=== PATIENT | male | born 1950 | race Caucasian/White ===

== ENCOUNTER 2020-02-19 12:19 | Outpatient (CLI) | payer OTHER, SELFPAY ==
--- NOTE | 2020-02-19 12:22 | ECG_ITS ---
Measurements Intervals [place] Rate: 69 P: 46 RI: 159 QRS: -5 QRSD: 81 T: 54 QT: 362 QTc: 389 Interpretive Statements SINUS RHYTHM EARLY PRECORDIAL R/S TRANSITION BASELINE ARTIFACT- I, III, AVR, AVL, AVF, V1-V6 BORDERLINE ECG Electronically Signed On 02-19-2020 13:33:47 CDT by Agustin Farmer D.O.
[2020-02-19 13:11] LABS: Anion Gap 5 mmol/L (8-16); Blood Urea Nitrogen 16 mg/dL (9-20); Calcium 9.7 mg/dL (8.4-10.2); Carbon Dioxide 34 mmol/L (22-30); Chloride 100 mmol/L (98-107); Estimated Glomerular Filt Rate > 60; Glucose 134 mg/dL (75-110); Potassium 4.9 mmol/L (3.4-5.0); Sodium 139 mmol/L (137-145)
== END 2020-02-19 12:20 | disposition home or self-care (01) ==
PROVIDERS: Anesthesiology; PCP Family Medicine; Visit Provider Surgery
DX: E11.9 Type 2 diabetes mellitus without complications (principal); Z01.818 Encounter for other preprocedural examination; R94.31 Abnormal electrocardiogram [ECG] [EKG]
CPT/HCPCS: 36415; 80048; 93005

== ENCOUNTER 2020-02-24 00:55 | Outpatient (CLI) | payer OTHER, SELFPAY ==
[2020-02-24 16:30] LABS: SARS-CoV-2 RNA PCR Negative
== END 2020-02-24 00:56 | disposition home or self-care (01) ==
LOC: ANHCOVIDDT 00:55
PROVIDERS: PCP Family Medicine; Visit Provider Surgery
DX: Z01.812 Encounter for preprocedural laboratory examination (principal); Z20.828 Contact with and (suspected) exposure to other viral communicable diseases
CPT/HCPCS: 87635; C9803; U0003

== ENCOUNTER 2020-02-26 00:17 | Day surgery (SDC) | payer OTHER, SELFPAY ==
[2020-02-17 14:55] VITALS: BMI 31.8
[2020-02-26 10:10] VITALS: BP 156/97; PULSE 66; RESP 20; TEMP 36.4; O2SAT 98
[2020-02-26] MEDS: LACTATED RINGERS 1,000 ML 30 ML IV CONT (10:30)
[2020-02-26 10:43] LABS: Glucose Point of Care 146 (65-105)
--- NOTE | 2020-02-26 11:12 | WPDANESEPPF ---
Anes - Initial Pre Proc Eval Procedure: Operation Date: 02/26/20 12:00 Proposed Procedures p Excision of Subcutaneous Mass Right Posterior Neck - Ben Young MD Date/Time: 02/26/20 11:12 Surgeon: Ben Young MD Pre Op Diagnosis: Subcutaneous Mass Right Neck Patient Data Age: 69 Gender: M Height: 5 ft 11 in Weight: 105.8 kg Last Vital Signs Temp 97.6 F 02/26/20 10:10 Pulse 66 02/26/20 10:10 Resp 20 02/26/20 10:10 BP 156/97 H 02/26/20 10:10 Pulse Ox 98 02/26/20 10:10 Allergies Allergy/AdvReac Type Severity Reaction Status Date / Time mesalamine Allergy Unknown Unknown Verified 02/17/20 14:43 aspirin AdvReac Mild ITCHING Verified 02/26/20 10:21 AND LITTLE BUMPS ON TOP OF HEAD Home Medications Medication Instructions Recorded Confirmed Type atorvastatin 10 mg tablet 10 mg PO DAILY 02/12/20 02/26/20 History metformin 500 mg tablet 500 mg PO BID 02/12/20 02/26/20 History Laboratory Tests 02/26/20 10:37 POC Capillary Glucose 146 mg/dl H mg/dl (65-105) Patient hx anesthesia problems: none Family hx anesthesia problems: none PMFSH Past Medical History Medical History Diabetes mellitus High cholesterol Hypertension Surgical History Surgical History History of arthroplasty of left knee History of laparoscopic appendectomy Family History Family History Mother , age 76 Family history of aortic aneurysm Carcinoma of colon Father , age 82 Acute myocardial infarction Hypertension Lung cancer Other Family history of cardiovascular disease Family history of malignant neoplasm Social History Social History Smoking status: Never smoker Alcohol intake: current Living arrangements: with family Spiritual care concerns: No Anes - Eval Final PreProcedure Day of Procedure 02/26/20 11:12 Patient weight: obese Heart: regular rate and rhythm Lungs: clear to auscultation Airway: Mallampati scale class II Neurological: alert and oriented Last oral intake: >/= 8 hours ASA classification: III Emergent: no Anesthetic plan: proceed Anesthesia type and monitoring: general GIVS and standard monitoring Informed Consent: The patient's anesthetic plan and its attendant risks and benefits were discussed with the patient/family/POA. Questions were solicited and answers provided to the satisfaction of the patient/family/POA.
--- NOTE | 2020-02-26 12:00 | WPDHPUPDATE1 ---
History and Physical Update Update Date/Time: 02/26/20 12:00 History and Physical has been reviewed, including an updated exam of the patient. There are NO changes in the patient's condition. Risks, benefits, and alternatives have been discussed and questions answered. Patient agrees to proceed with procedure.
[2020-02-26] MEDS: ceFAZolin 2 GM/D5W 50 ML 2 GM/50 ML BAG IVPB (12:42)
[2020-02-26] MEDS: LIDO 2%/EPINEPHRINE 1:100,000 20 ML VIAL INFILTRATE (13:17)
[2020-02-26 13:44] VITALS: BP 130/71; PULSE 69; RESP 12; O2SAT 95
--- NOTE | 2020-02-26 13:56 | P.OP_ITS ---
Procedure Note - Detailed Date of procedure: 02/26/20 Pre-op diagnosis: Subcutaneous Mass Right Neck Post-op diagnosis: same Procedure performed: Excision of skin lesion Description of procedure: The patient was placed in the left lateral decubitus position. After a surgical time out confirming patient and procedure the patient was prepped and draped in the usual sterile fashion. I then outlined a transverse incision directly over the 6 cm x 4 cm palpable subcutaneous mass on the left posterior sees me right posterior neck.Local anesthetic was administered subcutaneously An in the skin and also from the midline down to the edges of the lesion.. The lesion measured 6 x 4 cm. A direct incision was made over the lesion and I then raised flaps inferiorly and superiorly using retractors to carefully completely excise the egg-shaped subcutaneous lesion. In doing so I was taking a thin margin circumferentially. I dissected down to the deep subcutaneous tissues an on the deep side did run into a little bit of fascia overlying his cervical muscles. No real muscle tissue was excised. I then completely excised the lesion. after excision measured 6 x 4 x 2 cm in size and appeared to be a lipoma. Bleeding was controlled with electrocautery. The wound was closed in two layers. An un-dyed 3-0 vicryl deep dermal and then a 4-0 undyed Monocryl running subcuticular closure was completed. Surgical glue applied as dressing. Patient was taken to phase 2 recovery room in good condition Estimated blood loss approximately 5 cc Patient tolerated this well. Implants: none Anesthesia: GLMA and local Surgeon: Ben Young MD Zigzag Appliquer: ROSA MARIA Edouard, OR first line production supervisor Estimated blood loss (mL): 5 Drains: No Packing: No Pathology: yes ( oval subcutaneous mass) Complications: No immediate complications Condition: stable Disposition: same day Findings: What appeared to be a fatty subcutaneous mass.
[2020-02-26 13:59] LABS: Glucose Point of Care 145 (65-105)
[2020-02-26 14:15] VITALS: BP 130/67; PULSE 69; RESP 20
[2020-02-26 14:45] VITALS: BP 150/80; PULSE 56; RESP 20
== END 2020-02-26 14:50 | disposition home or self-care (01) ==
PROVIDERS: PCP Family Medicine; Visit Provider Surgery
PROC: (CPT 21552; principal; 2020-02-26 12:00)
DX: D17.0 Benign lipomatous neoplasm of skin and subcutaneous tissue of head, face and neck (principal); E11.9 Type 2 diabetes mellitus without complications; E78.00 Pure hypercholesterolemia, unspecified; I10 Essential (primary) hypertension; Z79.84 Long term (current) use of oral hypoglycemic drugs; E66.9 Obesity, unspecified; Z68.32 Body mass index [BMI] 32.0-32.9, adult
CPT/HCPCS: 21552; 88304; J0690; J2250; J2704; J3010; J7120

== ENCOUNTER → 2020-05-21 10:45 | Outpatient (CLI) | payer OTHER, SELFPAY ==
--- NOTE | ~2020-05-21 | MR_ITS ---
EXAMINATION: MR cervical spine wo/w con DATE: 05/21/2020 11:53 INDICATION: Cervicalgia TECHNIQUE: Magnetic resonance imaging (MRI) of the cervical spine was performed without and with 20 m L Multihance intravenous contrast. Sequences included sagittal T2-weighted FSE, sagittal T2-weighted FS FSE, sagittal T1-weighted FSE, axial MERGE and axial T2-weighted FSE. COMPARISON: Cervical spine radiographs dated 02/13/2017 FINDINGS: Mild reversal of the normal cervical lordosis. 2 mm retrolisthesis C6 on C7. Vertebral body heights are normal. Mild marrow edema and enhancement along the margins of a small Schmorl's node at the supe rior endplate of C7. Bone marrow signal intensity is otherwise normal. Moderate disc height loss at C 5-C6 and mild disc height loss at C3-C4, C4-C5 and C6-C7. Cord signal intensity is normal. There is a n approximately 4.3 x 1.5 x 2.4 cm enhancing right paraspinal spiculated mass centered in the subcuta neous fat overlying the right trapezius muscle at the level of the tip of the C4 spinous process. Lat eral to the splenic masses are a few small enhancing subcutaneous nodules measuring up to 4 mm sugges ting associated lymphadenopathy. The following disc levels are specifically discussed: C2-C3: The disc does not extend beyond the endplate margin. There is mild bilateral uncovertebral abida nt osteoarthritis. There is mild left and severe right facet joint osteoarthritis. There is moderate right neural foraminal stenosis. There is no central canal stenosis. C3-C4: The disc does not extend beyond the endplate margin. There is mild left and moderate right unc overtebral joint osteoarthritis. There is mild right and severe left facet joint osteoarthritis. Ther e is moderate bilateral neural foraminal stenosis. There is mild central canal stenosis. C4-C5: Disc is bulging. There is moderate right and severe left uncovertebral joint osteoarthritis. T here is moderate bilateral facet joint osteoarthritis. There is moderate bilateral, right greater breanna n left, neural foraminal stenosis. There is mild central canal stenosis with mild indentation of the ventral surface of the cord. C5-C6: Disc is bulging. There is mild right and severe left uncovertebral joint osteoarthritis. There is also moderate bilateral facet joint osteoarthritis. There is moderate left and mild to moderate r ight neural foraminal stenosis. There is mild central canal stenosis with flattening of the ventral s urface of the cord.. C6-C7: Disc is bulging. There is moderate right and severe left uncovertebral joint osteoarthritis. T here is mild right and moderate left facet joint osteoarthritis. There is moderate left and mild to m oderate right neural foraminal stenosis. There is mild central canal stenosis. 4.3 x 1.5 x 2.4 similar enhancing subcutaneous mass C7-T1: Disc is minimally bulging. There is no uncovertebral joint osteoarthritis. There is moderate l eft and severe right facet joint osteoarthritis. There is mild left and mild to moderate right neural foraminal stenosis. There is no central canal stenosis. IMPRESSION: 1. 4.3 x 1.5 x 2.4 cm enhancing spiculated right paraspinal subcutaneous mass at the level of the C4 spinous process. There are a few subcentimeter enhancing nodules in the adjacent subcutaneous fat. Th felicita findings are concerning for malignancy with local metastatic disease and would recommend ultrasou nd-guided percutaneous core needle biopsy. 2. Moderate cervical spondylosis. Reviewed, dictated and finalized at location A. NG SCRUBBER IMPRESSION: 1. 4.3 x 1.5 x 2.4 cm enhancing spiculated right paraspinal subcutaneous mass a t the level of the C4 spinous process. There are a few subcentimeter enhancing nodules in the adjacent subcutaneous fat. These findings are concern
[2020-05-21 11:19] LABS: Estimated Glomerular Filt Rate > 60
== END ==
PROVIDERS: PCP Internal Medicine; Visit Provider Nurse Practitioner
DX: M47.813 Spondylosis without myelopathy or radiculopathy, cervicothoracic region (principal); M48.03 Spinal stenosis, cervicothoracic region
CPT/HCPCS: 72156; A9577

== ENCOUNTER 2020-06-03 09:08 | Outpatient (CLI) | payer OTHER, SELFPAY ==
--- NOTE | ~2020-06-03 | US_ITS ---
EXAMINATION: US biopsy st neck thorax DATE: 06/03/2020 09:57 INDICATION: Subcutaneous mass in the right posterior neck. TECHNIQUE: The procedure including the risks, benefits, and alternatives was discussed with the patie nt. Risks discussed included bleeding and infection. The patient understood the risks and agreed to p roceed. The skin overlying the posterior neck was prepped and draped in usual sterile fashion. Anest hetic was administered with 1% lidocaine subcutaneously. An 18 gauge core biopsy needle was then use d to obtain 3 core biopsy specimens under continuous sonographic guidance. The entry site was cleaned and dressed. There were no immediate complications. FINDINGS: Ultrasound images demonstrate the needle in a 4.3 cm subcutaneous mass in the right posteri or neck. IMPRESSION: 1. Ultrasound-guided core needle biopsy of a subcutaneous mass in the right posterior neck. During th e procedure, the patient reported having a recent lipoma removal in this location. Reviewed, dictated and finalized at location A. I TOWNSHIP ASSESSOR IMPRESSION: 1. Ultrasound-guided core needle biopsy of a subcutaneous mass in the right pos terior neck. During the procedure, the patient reported having a recent lipoma removal in this location.
== END 2020-06-03 09:09 | disposition home or self-care (01) ==
PROVIDERS: Family Provider Family Medicine; PCP Internal Medicine; Visit Provider Internal Medicine
DX: R22.1 Localized swelling, mass and lump, neck (principal); L90.5 Scar conditions and fibrosis of skin
CPT/HCPCS: 20206; 76942; 88305

== ENCOUNTER → 2020-07-09 10:39 | Outpatient (CLI) | payer OTHER, SELFPAY ==
--- NOTE | ~2020-07-09 | US_ITS ---
EXAMINATION: US soft tissue head and neck EXAM DATE: 07/09/2020 11:11 INDICATION: Abnormal MR with small round masses next to larger region which was biopsied, reportedly determined to be scar tissue. TECHNIQUE: Multiple grayscale and Doppler images of the posterior neck and internal jugular chains we re obtained (by a technologist who performed the scan) and subsequently reviewed. Correlation is made to MR cervical spine 05/21/2020. FINDINGS: MR demonstrated spiculated subcutaneous enhancing mass like region which was biopsied. Also reported several small masses in the region. These are round and measure between 3 and 4 mm. These are not spe cifically identified on this examination but likely represent small reactive lymph nodes given biopsy results. Ill-defined right mid cervical paraspinal region of subcutaneous fat is again identified, p reviously biopsied. The internal jugular chains demonstrate several normal sized lymph nodes, no path ologically enlarged lymph nodes on either side. IMPRESSION: Sonographically ill-defined right paraspinal region, correlate with prior biopsy result. No lymphadenopathy. Reviewed, dictated and finalized at location B. ATTENDANT IMPRESSION: Sonographically ill-defined right paraspinal region, correlate wit h prior biopsy result. No lymphadenopathy.
== END ==
PROVIDERS: PCP Internal Medicine; Visit Provider Internal Medicine
DX: R59.1 Generalized enlarged lymph nodes (principal)
CPT/HCPCS: 76536

== ENCOUNTER 2021-05-25 00:12 | Day surgery (SDC) | payer OTHER, SELFPAY ==
[2021-04-16 13:40] VITALS: BMI 32.2
[2021-05-13 15:40] VITALS: BMI 32.2
[2021-05-25 07:21] VITALS: BP 144/91; PULSE 84; RESP 18; TEMP 36.8; O2SAT 95
[2021-05-25 07:38] LABS: Glucose Point of Care 166 mg/dl (65-105)
[2021-05-25] MEDS: LACTATED RINGERS 1,000 ML 150 ML IV CONT (07:38)
--- NOTE | 2021-05-25 08:02 | WPDGICN ---
Assessment and Plan Assessment and plan (1) Family history of colon cancer in mother: Code(s): Z80.0 - Family history of malignant neoplasm of digestive organs Status: Acute Assessment and Plan: Patient's mother had colon cancer. Suggest screening colonoscopies be performed at intervals typically 5 year intervals now and in the future. GI Consult Note Consult date/time: 05/25/21 08:02 HPI: Adebayo Jennings is a 70 year old male Presents for screening colonoscopy. Patient's current weight appetite bowel movements are normal. He denies abdominal pain. Family history is significant that his mother had colon cancer. Patient's most recent colonoscopy 9 years ago was unremarkable. Review of Systems Review of Systems: All systems reviewed & are unremarkable except as noted in HPI and below PMFSH Past Medical History Medical History (Updated 05/25/21 @ 08:04 by Axel Ashley MD) Diabetes mellitus High cholesterol Hyperlipidemia Hypertension Surgical History Surgical History History of arthroplasty of left knee History of laparoscopic appendectomy History of removal of neck cyst 2019 History of vocal cord polypectomy 2003 Hx of squamous cell carcinoma excision 2007 Neck mass Family History Family History Mother , age 76 Family history of aortic aneurysm Carcinoma of colon Father , age 82 Acute myocardial infarction Hypertension Lung cancer Sibling , 2002 - liver failure No problems noted. Other Family history of cardiovascular disease Family history of malignant neoplasm Social History Social History (Updated 01/29/21 @ 13:23 by Flaca Martinez) Smoking status: Never smoker Second hand tobacco smoke exposure: Yes Alcohol intake: current Drinks per week: 2 Alcohol use details: social Substance use: never Substance use type: does not use Living arrangements: with family Spiritual care concerns: No Meds Home Medications and Allergies Home Medications Medication Instructions Recorded Confirmed Type ibuprofen 200 mg tablet 200 mg PO Q6H PRN 11/18/20 04/16/21 History atorvastatin 10 mg tablet 10 mg PO DAILY #90 tablet 12/09/20 05/25/21 Rx metformin 500 mg tablet 500 mg PO BID #90 tablet 01/19/21 04/16/21 Rx meloxicam 15 mg PO DAILY PRN 04/16/21 04/16/21 History Allergies Allergy/AdvReac Type Severity Reaction Status Date / Time mesalamine Allergy Unknown Hives Verified 05/25/21 07:20 aspirin AdvReac Mild ITCHING Verified 05/25/21 07:20 AND LITTLE BUMPS ON TOP OF HEAD Vital Signs Vital Signs - 24 hr 05/25/21 07:21 Temperature 98.3 F Pulse Rate 84 Respiratory Rate 18 Blood Pressure 144/91 H Pulse Oximetry 95 Exam Narrative: Physical exam reveals patient to be alert. Vital signs stable. HEENT exam is unremarkable. Patient is anicteric. Lungs are clear to auscultation and percussion. Heart is without murmur or extra sounds. Abdominal exam bowel sounds are present soft nontender with no hepatosplenomegaly. Digital external rectal exam is normal.
--- NOTE | 2021-05-25 08:35 | WPDANESEPPF ---
Anes - Initial Pre Proc Eval Procedure: Operation Date: 05/25/21 08:30 Proposed Procedures p Screening Colonoscopy - Axel Ashley MD Date/Time: 05/25/21 08:35 Surgeon: Axel Ashley MD Pre Op Diagnosis: family hx of colon ca Patient Data Age: 70 Gender: M Height: 1.78 m Weight: 104.1 kg Last Vital Signs Temp 98.3 F 05/25/21 07:21 Pulse 84 05/25/21 07:21 Resp 18 05/25/21 07:21 BP 144/91 H 05/25/21 07:21 Pulse Ox 95 05/25/21 07:21 Allergies Allergy/AdvReac Type Severity Reaction Status Date / Time mesalamine Allergy Unknown Hives Verified 05/25/21 07:20 aspirin AdvReac Mild ITCHING Verified 05/25/21 07:20 AND LITTLE BUMPS ON TOP OF HEAD Home Medications Medication Instructions Recorded Confirmed Type ibuprofen 200 mg tablet 200 mg PO Q6H PRN 11/18/20 04/16/21 History atorvastatin 10 mg tablet 10 mg PO DAILY #90 tablet 12/09/20 05/25/21 Rx metformin 500 mg tablet 500 mg PO BID #90 tablet 01/19/21 04/16/21 Rx meloxicam 15 mg PO DAILY PRN 04/16/21 04/16/21 History Laboratory Tests 05/25/21 07:35 POC Capillary Glucose 166 mg/dl H mg/dl (65-105) Patient hx anesthesia problems: none Family hx anesthesia problems: none Results Review: All pre-operative results and documents have been reviewed as part of the pre-operative evaluation. [facility] Past Medical History Medical History (Updated 05/25/21 @ 08:04 by Axel Ashley MD) Diabetes mellitus High cholesterol Hyperlipidemia Hypertension Surgical History Surgical History History of arthroplasty of left knee History of laparoscopic appendectomy History of removal of neck cyst 2019 History of vocal cord polypectomy 2004 Hx of squamous cell carcinoma excision 2007 Neck mass Family History Family History Mother , age 76 Family history of aortic aneurysm Carcinoma of colon Father , age 82 Acute myocardial infarction Hypertension Lung cancer Sibling , 2002 - liver failure No problems noted. Other Family history of cardiovascular disease Family history of malignant neoplasm Social History Social History (Updated 01/29/21 @ 13:23 by Flaca Martinez) Smoking status: Never smoker Second hand tobacco smoke exposure: Yes Alcohol intake: current Drinks per week: 2 Alcohol use details: social Substance use: never Substance use type: does not use Living arrangements: with family Spiritual care concerns: No Anes - Eval Final PreProcedure Day of Procedure 05/25/21 08:35 Patient weight: obese Heart: regular rate and rhythm Lungs: clear to auscultation Airway: Mallampati scale class II Neurological: alert and oriented Last oral intake: >/= 8 hours ASA classification: III Emergent: no Anesthetic plan: proceed Anesthesia type and monitoring: general GIVS and standard monitoring Results Review: All pre-operative results and documents have been reviewed as part of the pre-operative evaluation. Informed Consent: The patient's anesthetic plan and its attendant risks and benefits were discussed with the patient/family/POA. Questions were solicited and answers provided to the satisfaction of the patient/family/POA.
[2021-05-25 08:58] VITALS: BP 116/83; PULSE 66; RESP 23; O2SAT 95
[2021-05-25 09:08] VITALS: BP 135/82; PULSE 67; RESP 19; O2SAT 96
[2021-05-25 09:18] VITALS: BP 136/99; PULSE 64; RESP 23; O2SAT 98
== END 2021-05-25 09:28 | disposition home or self-care (01) ==
PROVIDERS: PCP Internal Medicine; Visit Provider Internal Medicine Gastroenterology
PROC: 0DJD8ZZ Inspection of Lower Intestinal Tract, Via Natural or Artificial Opening Endoscopic (ICD-10-PCS; CPT 45378; principal; 2021-05-25 08:30)
DX: Z12.11 Encounter for screening for malignant neoplasm of colon (principal); D12.8 Benign neoplasm of rectum; K57.30 Diverticulosis of large intestine without perforation or abscess without bleeding; K64.8 Other hemorrhoids; Z80.0 Family history of malignant neoplasm of digestive organs; E11.9 Type 2 diabetes mellitus without complications; E78.00 Pure hypercholesterolemia, unspecified; E78.5 Hyperlipidemia, unspecified; I10 Essential (primary) hypertension; Z79.84 Long term (current) use of oral hypoglycemic drugs; E66.9 Obesity, unspecified; Z68.32 Body mass index [BMI] 32.0-32.9, adult
CPT/HCPCS: 45385; 82948; 88305; J2704; J7120

== ENCOUNTER 2022-04-15 11:57 | Outpatient (CLI) | payer OTHER, SELFPAY ==
--- NOTE | ~2022-04-15 | XR_ITS ---
Left Shoulder Technique: AP and scapular Y views were obtained. Clinical History: Pain COMPARISON: 02/07/2019 Findings: No fracture or dislocation is seen. Osseous alignment is anatomic. The glenohumeral and acr omioclavicular joint spaces are preserved. Soft tissues are unremarkable. Impression: Unremarkable left shoulder radiographs. Reviewed, dictated and finalized at location [] MILL SUPERVISOR Impression: Unremarkable left shoulder radiographs.
== END 2022-04-15 11:58 | disposition home or self-care (01) ==
PROVIDERS: PCP Internal Medicine; Visit Provider Internal Medicine
DX: M25.512 Pain in left shoulder (principal)
CPT/HCPCS: 73030

== ENCOUNTER → 2022-04-29 06:58 | Outpatient (CLI) | payer OTHER, SELFPAY ==
--- NOTE | ~2022-04-29 | MR_ITS ---
MRI of the left shoulder Technique: Axial proton-density fat-sat images, coronal proton density fat-sat and T2 fat-sat images, and sagittal T1-weighted and T2 fat-sat images were acquired. Clinical History: Pain COMPARISON: 04/11/2019 Findings: There is a small subacromial spur, without additional significant degenerative changes AC j oint. Coracoclavicular, coracoacromial, and coracohumeral ligament are intact. Supraspinatus and infraspinatus tendons are intact, without partial or full-thickness tear. Subscapul tommie tendon is intact. Tendon of long head of the biceps is intact. There is mild degenerative attenuation or tearing of the posterior superior labrum, similar to prior exam. Inferior glenohumeral ligament is intact. No significant degenerative changes of the glenohumeral abida nt. No significant joint effusion. No fluid distention of the subacromial/subdeltoid bursa. Marked fa tty atrophy of the infraspinatus, teres minor, and moderate to severe fatty atrophy of the subscapula ris and supraspinatus muscle bellies is present, similar to prior exam. Impression: Extensive muscle atrophy about the shoulder girdle, similar to prior exam, of uncertain etiology. Stable degenerative attenuation or tearing of the posterior superior labrum. No rotator cuff tear. Reviewed, dictated and finalized at [facility]. [employer] WETTER Impression: Extensive muscle atrophy about the shoulder girdle, similar to prior exam, of u ncertain etiology. Stable degenerative attenuation or tearing of the posterior superior labrum. No rotator cuff tear.
== END ==
PROVIDERS: PCP Internal Medicine; Visit Provider Internal Medicine
DX: M25.512 Pain in left shoulder (principal); M62.512 Muscle wasting and atrophy, not elsewhere classified, left shoulder
CPT/HCPCS: 73221

== ENCOUNTER → 2022-05-17 11:14 | Outpatient (CLI) | payer OTHER, SELFPAY ==
--- NOTE | ~2022-05-17 | XR_ITS ---
XR_[id number]_CR DATE: 05/17/2022 11:38 INDICATION: Neck pain TECHNIQUE: AP, open-mouth and lateral views COMPARISON: 02/13/2017 cervical spine FINDINGS: There is reversal cervical curvature which may be due to muscle spasm. There is mild dextro scoliosis of the cervical spine. There is degenerative change at the articulation of the anterior arch of C1 and odontoid process of C 2. C1 and C2 are normally aligned and the odontoid process is intact. There is minimal anterolisthesis and moderate degenerative disc disease C3-4. There is moderately severe degenerative disc disease at C4-5 and C5-6. There is moderate degenerative disease at C6-7. The degenerative disc disease has advanced considerably since 02/13/2017. Prominent uncovertebral joint spurring is noted on the left at C4-5, C5-6 and C6-7. There is degenera tive change at the apophyseal joints. No fracture or dislocation or locked facet or prevertebral soft tissue swelling. IMPRESSION: Reversal cervical curvature, likely due to muscle spasm Mild cervical dextro scoliosis Prominent cervical spondylosis, considerably advanced since 02/13/2017 Reviewed, dictated and finalized at Location A. Reviewed, dictated and finalized at location L. GAGE LOAN CLOSER
== END ==
PROVIDERS: PCP Internal Medicine; Visit Provider Internal Medicine
DX: M54.2 Cervicalgia (principal); M41.9 Scoliosis, unspecified; M47.812 Spondylosis without myelopathy or radiculopathy, cervical region
CPT/HCPCS: 72040

== ENCOUNTER 2022-05-18 10:45 | Emergency (ER) | payer OTHER, SELFPAY ==
[2022-05-18 10:57] VITALS: BP 153/101; PULSE 96; RESP 16; TEMP 36.7; O2SAT 97
--- NOTE | 2022-05-18 10:57 | ED.URI ---
HPI - URI/Sore Throat General Chief Complaint: Upper Respiratory Infection Stated Complaint: Cough/Eyes/Bodyaches Time Seen by Provider: 05/18/22 10:57 Source: patient Mode of arrival: ambulatory Limitations: no limitations History of Present Illness HPI Narrative: Obie is a 71-year-old male patient presenting to the clinic today with complaints of productive cough with yellow phlegm, fatigue, body aches, sinus congestion, chills, feverish, and eye discomfort x5 days. He reports no shortness of breath or chest pain. He thinks he may have a sinus infection. He reports he gets this infection every year usually gets a z-pack and that takes care of it. MD elicited complaint: fever, cough, rhinorrhea, nasal congestion and sinus pain Related Data Allergies Allergy/AdvReac Type Severity Reaction Status Date / Time mesalamine Allergy Unknown Hives Verified 05/18/22 10:47 aspirin AdvReac Mild ITCHING Verified 05/18/22 10:47 AND LITTLE BUMPS ON TOP OF HEAD Review of Systems Review of Systems: Pertinent positives per HPI. Patient denies any rash, headache, visual changes, dizziness, shortness of breath, chest pain, palpitations, nausea, vomiting, diarrhea, constipation, abdominal pain, or any urinary issues. [facility] Past Medical History Medical History Diabetes mellitus High cholesterol Hyperlipidemia Hypertension Surgical History Surgical History History of arthroplasty of left knee History of laparoscopic appendectomy History of removal of neck cyst 2019 History of vocal cord polypectomy 2004 Hx of squamous cell carcinoma excision 2007 Neck mass Family History Family History Mother , age 76 Family history of aortic aneurysm Carcinoma of colon Father , age 82 Acute myocardial infarction Hypertension Lung cancer Sibling , 2002 - liver failure No problems noted. Other Family history of cardiovascular disease Family history of malignant neoplasm Social History Social History Smoking status: Never smoker Second hand tobacco smoke exposure: Yes Alcohol intake: current Drinks per week: 2 Alcohol use details: social Substance use: never Substance use type: does not use Lack of Transportation: No Lack of Food: Never True Current Housing: I Have Housing Concerned About Future Housing: No Difficulty Paying Gas/Electric Bills: No Difficulty Paying for Meds: No Currently Unemployed: No Education: Trade/Vocational Certificate Difficulty w/ Childcare or Family Care: No Spiritual care concerns: No Comments At the time of my signature, I reviewed and agree with the nursing past medical, surgical, social, and family history. There is no relevant family history pertinent to the patient complaint. Exam Narrative: General: Well-developed, well nourished, in no apparent distress Head: Normocephalic, atraumatic Eyes: Pupils equally round and reactive to light bilaterally, EOM intact, sclera and conjunctive clear, no discharge, lids normal Ears: TMs intact and clear, ear canals clear, no drainage, grossly hearing normal. Nose: Nares patent, yellow nasal discharge, moderate inflammation, no sinus tenderness. Mouth: Oral pharynx without lesions or masses, good dentition, MMM. Post nasal drip Neck: Supple, trachea midline, no enlargement of anterior or posterior cervical nodes, no thyroid masses or goiter palpable. Cardio: Regular rate and rhythm, s1 and s2 normal, no murmur appreciated. Resp: Clear to auscultation bilaterally, no rhonchi, rales, wheezing or rubs Course Course Emergency Course: Portions of this record may have been created with voice recognition software. Irma
== END 2022-05-18 11:32 | disposition home or self-care (01) ==
PROVIDERS: Emergency Provider Nurse Practitioner Family; PCP Internal Medicine
DX: J06.9 Acute upper respiratory infection, unspecified (principal); B34.9 Viral infection, unspecified; Z20.822 Contact with and (suspected) exposure to COVID-19; E11.9 Type 2 diabetes mellitus without complications; E78.00 Pure hypercholesterolemia, unspecified; E78.5 Hyperlipidemia, unspecified; I10 Essential (primary) hypertension; Z85.828 Personal history of other malignant neoplasm of skin
CPT/HCPCS: 87426; 87804; 99213; C9803; G0463

== ENCOUNTER → 2022-06-02 08:50 | Outpatient (CLI) | payer OTHER, SELFPAY ==
--- NOTE | ~2022-06-02 | MR_ITS ---
MRI of the cervical spine Clinical History: Radiculopathy, spondylosis Technique: Axial T2-weighted and gradient images, and sagittal T1-weighted, T2-weighted, and STIR nazario ges were acquired. COMPARISON: 05/21/2020 Findings: No acute fracture or subluxation identified. Mild reversal normal cervical lordosis is jhony lar to prior exam. Osseous alignment is essentially unchanged. No suspicious bone marrow signal abnor mality seen. At C2-C3, there is minimal disc osteophyte complex with right-sided facet joint degenerative change. There is mild right neural foraminal narrowing. No spinal canal stenosis, cord compression, or left n eural foraminal narrowing. At C3-C4, there is minimal disc osteophyte complex, with minimal flattening of the ventral cord. Prob able minimal left neural foraminal narrowing. Right neural foramen preserved. At C4-C5, disc bulge/osteophyte complex results in mild canal stenosis and mild ventral cord compress ion, similar to prior exam. Probable minimal bilateral neural foraminal narrowing. At C5-C6, there is no significant disc bulge or herniation. No spinal canal stenosis, cord compressio n, or definite neural foraminal narrowing. At C6-C7, there probable mild left foraminal disc bulge. No spinal canal stenosis or cord compression . Probable mild left neural foraminal narrowing. Right neural foramen preserved. No abnormal signal seen in the spinal cord. Paravertebral soft tissues are unremarkable. Impression: Mild canal stenosis and ventral cord compression at C4-C5 related to disc osteophyte complex. Additional mild degenerative spondylosis, as detailed above, similar to prior exam. There are multile antonio areas of neural foraminal narrowing, as detailed above. Stable reversal of the normal cervical lordosis. Reviewed, dictated and finalized at location . UP OPERATOR Impression: Mild canal stenosis and ventral cord compression at C4-C5 related to disc osteo phyte complex. Additional mild degenerative spondylosis, as detailed above, similar to prior e xam. There are multilevel areas of neural foraminal narrowing, as detailed abov e. Stable reversal of the normal cervical lordosis.
== END ==
PROVIDERS: PCP Internal Medicine; Visit Provider Internal Medicine
DX: M47.22 Other spondylosis with radiculopathy, cervical region (principal)
CPT/HCPCS: 72141

== ENCOUNTER 2022-08-10 12:00 | Emergency (ER) | payer OTHER, SELFPAY ==
[2022-08-10 12:17] VITALS: BP 145/96; PULSE 94; RESP 16; TEMP 37.1; O2SAT 98
--- NOTE | 2022-08-10 12:20 | ED.URI ---
HPI - URI/Sore Throat General Chief Complaint: Upper Respiratory Infection Stated Complaint: Cough/Sinus Time Seen by Provider: 08/10/22 12:28 Source: patient and RN notes reviewed Mode of arrival: ambulatory Limitations: no limitations History of Present Illness HPI Narrative: 71 y/o male with hx DM presented for c/o cough and sinus congestion for over one week. Cough is productive of yellow or green sputum. Denies sob, wheezing, fatigue, n/v/d/f/c. Taking otc Advil cold medication. MD elicited complaint: cough Related Data Allergies Allergy/AdvReac Type Severity Reaction Status Date / Time mesalamine Allergy Unknown Hives Verified 08/10/22 12:29 aspirin AdvReac Mild ITCHING Verified 08/10/22 12:29 AND LITTLE BUMPS ON TOP OF HEAD Review of Systems Review of Systems: CONSTITUTIONAL: Denies malaise, chills, sweats, fever EYES: Denies visual changes, redness, or discharge ENT: Reports rhinorrhea, congestion, sinus pain, Denies otalgia, sore throat CARDIOVASCULAR: Denies chest pain, palpitations, edema RESPIRATORY: Reports cough, post nasal drainage. Denies dyspnea GASTROINTESTINAL: Denies abdominal pain, nausea, vomiting, diarrhea SKIN: Denies rash or itching MUSCULOSKELETAL: Denies myalgia NEUROLOGIC: Denies headache PMFSH Past Medical History Medical History Diabetes mellitus High cholesterol Hyperlipidemia Hypertension Surgical History Surgical History History of arthroplasty of left knee History of laparoscopic appendectomy History of removal of neck cyst 2019 History of vocal cord polypectomy 2004 Hx of squamous cell carcinoma excision 2007 Neck mass Family History Family History Mother , age 76 Family history of aortic aneurysm Carcinoma of colon Father , age 82 Acute myocardial infarction Hypertension Lung cancer Sibling , 2002 - liver failure No problems noted. Other Family history of cardiovascular disease Family history of malignant neoplasm Social History Social History Smoking status: Never smoker Second hand tobacco smoke exposure: Yes Alcohol intake: current Drinks per week: 2 Alcohol use details: social Substance use: never Substance use type: does not use Lack of Transportation: No Lack of Food: Never True Current Housing: I Have Housing Concerned About Future Housing: No Difficulty Paying Gas/Electric Bills: No Difficulty Paying for Meds: No Currently Unemployed: No Education: Trade/Vocational Certificate Difficulty w/ Childcare or Family Care: No Living arrangements: with family Occupation/Education: retired Spiritual care concerns: No Exam Narrative: GENERAL: well-appearing, nontoxic no acute distress. HEAD: Normocephalic EYES: PERRLA, conjunctivae clear ENT: Mucous membranes moist. TMs pearly sumner with dull light reflex bilaterally; no tragal tenderness. Oropharynx without lesions or exudate, no drooling, no hoarseness, no trismus, uvula midline. No tripod positioning, muffled voice, soft palate or pharyngeal wall bulging NECK: Supple. No lymphadenopathy CHEST: Clear to auscultation, breath sounds equal. Occasional moist filling carrier cough. No wheezing, rhonchi, rales, or stridor. No respiratory distress, speaks in full sentences. HEART: Regular rate and rhythm. No murmur heard. SKIN: Warm, dry, no rash. NEURO: Alert and oriented x3. PSYCH: Normal mood and affect Course Course Emergency Course: Patient is aware of diagnosis, understands and agrees to treatment plan. Anticipatory guidance given. Patient agrees to follow-up as directed and is aware of reasons to seek care at the emergency department. Portions of this record may have been created w
== END 2022-08-10 12:39 | disposition home or self-care (01) ==
PROVIDERS: Emergency Provider Nurse Practitioner Family; PCP Internal Medicine
DX: J06.9 Acute upper respiratory infection, unspecified (principal); E11.9 Type 2 diabetes mellitus without complications; E78.00 Pure hypercholesterolemia, unspecified; E78.5 Hyperlipidemia, unspecified; I10 Essential (primary) hypertension; Z85.828 Personal history of other malignant neoplasm of skin
CPT/HCPCS: 99213; G0463

== ENCOUNTER 2023-06-14 12:05 | Emergency (ER) | payer OTHER, SELFPAY ==
[2023-06-14 12:23] VITALS: BP 140/87; PULSE 89; RESP 16; TEMP 37; O2SAT 98
--- NOTE | 2023-06-14 12:30 | ED.URI ---
HPI - URI/Sore Throat General Chief Complaint: Upper Respiratory Infection Stated Complaint: cough,loss of voice,exhausted Time Seen by Provider: 06/14/23 12:33 Source: patient Mode of arrival: ambulatory Limitations: no limitations History of Present Illness HPI Narrative: 72-year-old male presents with complaint of cough, nasal congestion, postnasal drainage, sore throat, fatigue for 2 days. Afebrile. No chest pain or shortness of breath. Patient going out of town in 4 days to [place] and concerned that he will not be feeling good enough to drive. All systems reviewed and negative except as noted above. Related Data Home Medications Medication Instructions Recorded Confirmed simvastatin 20 mg tablet 20 mg PO DAILY 06/14/23 06/14/23 Allergies Allergy/AdvReac Type Severity Reaction Status Date / Time mesalamine Allergy Unknown Hives Verified 06/14/23 12:17 aspirin AdvReac Mild ITCHING Verified 06/14/23 12:17 AND LITTLE BUMPS ON TOP OF HEAD Review of Systems Review of Systems: CONSTITUTIONAL: Denies fever, chills, or sweats. reports fatigue. EYES: Denies visual changes, redness, or discharge. ENT: Reports rhinorrhea, congestion, sore throat. Denies otalgia. CARDIOVASCULAR: Denies chest pain, palpitations, or edema. RESPIRATORY: reports cough. Denies dyspnea. GASTROINTESTINAL: Denies abdominal pain, nausea, vomiting, or diarrhea. GENITOURINARY: Denies dysuria or hematuria. SKIN: Denies rash or itching. MUSCULOSKELETAL: Denies back pain, joint pain, or myalgia. NEUROLOGIC: Denies headache, numbness, or weakness. PSYCHIATRIC: Denies anxiety or depression. All other systems reviewed are negative, except as documented in HPI. [facility] Past Medical History Medical History Diabetes mellitus High cholesterol Hyperlipidemia Hypertension Surgical History Surgical History History of arthroplasty of left knee History of laparoscopic appendectomy History of removal of neck cyst 2020 History of vocal cord polypectomy 2004 Hx of squamous cell carcinoma excision 2007 Neck mass Family History Family History Mother , age 76 Family history of aortic aneurysm Carcinoma of colon Father , age 82 Acute myocardial infarction Hypertension Lung cancer Sibling , 2002 - liver failure No problems noted. Other Family history of cardiovascular disease Family history of malignant neoplasm Social History Social History (Reviewed 03/16/23 @ 08:15 by Ana Day [facility]) Smoking status: Never smoker Second hand tobacco smoke exposure: Yes Alcohol intake: current Drinks per week: 2 Alcohol use details: social Substance use: never Substance use type: does not use Lack of Transportation: No Lack of Food: Never True Current Housing: I Have Housing Concerned About Future Housing: No Difficulty Paying Gas/Electric Bills: No Difficulty Paying for Meds: No Currently Unemployed: No Education: Trade/Vocational Certificate Difficulty w/ Childcare or Family Care: No Living arrangements: with family Occupation/Education: retired Spiritual care concerns: No Comments At time of signature, agree with nursing past medical, surgical, social and family history. There is no relevant family history pertinent to the presenting complaint. Exam Narrative: GENERAL: This is a well-nourished, well-developed patient, in no apparent distress. HEAD: normocephalic, atraumatic. EYES: PERRL. Sclera clear/white. Vision is grossly intact. EARS: External ears normal, auditory canals clear and without drainage, TMs normal without perforation. Hearing grossly intact. NOSE: External nose normal with Clear nasal drainage, mild congestion. THROAT: Mucous m
== END 2023-06-14 12:35 | disposition home or self-care (01) ==
PROVIDERS: Emergency Provider Nurse Practitioner Family; PCP Family Medicine
DX: J06.9 Acute upper respiratory infection, unspecified (principal); R05.9 Cough, unspecified; Z20.822 Contact with and (suspected) exposure to COVID-19; E11.9 Type 2 diabetes mellitus without complications; E78.00 Pure hypercholesterolemia, unspecified; E78.5 Hyperlipidemia, unspecified; I10 Essential (primary) hypertension; Z96.652 Presence of left artificial knee joint; Z85.828 Personal history of other malignant neoplasm of skin
CPT/HCPCS: 87426; 87804; 99213; G0463

== ENCOUNTER 2023-11-28 12:14 | Emergency (ER) | payer OTHER, SELFPAY ==
--- NOTE | ~2023-11-28 | CT_ITS ---
EXAMINATION: CT abdomen pelvis w con DATE: 11/28/2023 15:22 INDICATION: Left lower quadrant abdominal pain. TECHNIQUE: Computed tomography (CT) of the abdomen and pelvis was performed with 100 mL Omnipaque 350 intravenous contrast. Automated exposure control and iterative reconstruction technique were employe d. The dose-length product was 1007.83 mGy-cm. COMPARISON: CT abdomen and pelvis 10/31/2012 FINDINGS: The visualized portions of the lung bases demonstrate mild atelectasis. No pleural effusion . The heart size is normal. There are coronary artery calcifications. No pericardial effusion. Calcif ications in the liver and spleen are consistent with old granulomatous disease. There is a 5 mm cyst in the liver. There is a gallstone in the gallbladder, which is normal in size. The pancreas and adre nal glands are normal. There is cortical thinning of the kidneys. There are cysts in the kidneys robin uring up to 9 mm on the left. The prostate is mildly enlarged. There is liquid stool in the colon sug gesting diarrhea. There are no pathologically enlarged lymph nodes. There is no free intraperitoneal fluid. There is mild thoracic and lumbar spondylosis. There is a hemangioma in L4 vertebral body. IMPRESSION: 1. No specific etiology for the patient's symptoms. Reviewed, dictated and finalized at location A.
[2023-11-28 12:15] VITALS: BP 149/99; PULSE 106; RESP 16; TEMP 36.4; O2SAT 97
[2023-11-28 14:46] LABS: Basophils Absolute Auto 0.1 K/mm3 (0.0-0.1); Basophils Percent Auto 1.1 % (0.2-1.2); Eosinophils Absolute Auto 0.1 K/mm3 (0-0.3); Eosinophils Percent Auto 1.5 % (0-4.4); Hematocrit 49.3 % (42.0-52.0); Hemoglobin 17.4 g/dL (14.0-18.0); Immature Granulocyte Absolute 0.02 K/mm3 (0.00-0.031); Immature Granulocyte Percent A 0.3 % (0-0.5); Lymphocytes Absolute Auto 0.73 K/mm3 (0.9-3.2); Mean Corpuscular HGB Conc 35.3 g/dl (32-36); Mean Corpuscular Volume 82.3 fl (80-100); Mean Platelet Volume 10.1 fl (7.4-10.4); Monocytes Absolute Auto 0.6 K/mm3 (0.1-0.6); Monocytes Percent Auto 8.6 % (2.6-8.5); Neutrophils Absolute Auto 5.1 K/mm3 (1.3-6.7); Neutrophils Percent Auto 77.5 % (45.5-73.1); Platelet Count Result 220 k/mm3 (150-375); Red Blood Count 5.99 M/mm3 (4.6-6.20); Red Cell Distribution Width 13.3 % (11.5-14.5); White Blood Count 6.6 K/mm3 (4.5-10.0)
[2023-11-28 14:52] LABS: Alanine Aminotransferase 32 U/L (6-50); Albumin Level 4.7 g/dL (3.5-5.1); Alkaline Phosphatase 75 U/L (38-126); Anion Gap 17 mmol/L (4-12); Aspartate Amino Transferase 34 U/L (17-59); Bilirubin,Total 1.4 mg/dL (0.2-1.3); Blood Urea Nitrogen 25 mg/dL (9-20); Calcium 8.6 mg/dL (8.4-10.2); Carbon Dioxide 19 mmol/L (22-30); Chloride 98 mmol/L (98-107); Estimated CRCL calculation 94 ml/min; Estimated Glomerular Filt Rate > 60; Glucose 138 mg/dL (65-110); Lipase 42 U/L (23-300); Potassium 3.5 mmol/L (3.4-5.0); Sodium 134 mmol/L (137-145)
[2023-11-28] MEDS: ONDANSETRON INJ 4 MG/2 ML VIAL IV PUSH (15:02)
[2023-11-28] MEDS: LACTATED RINGERS 1,000 ML 999 ML IV CONT ×2 (15:02→15:54)
[2023-11-28] MEDS: HYDROmorphone HCL INJ (*CRX) 1 MG/ML SYR IV PUSH (15:03)
[2023-11-28 15:22] LABS: Appearance Urine Clear (Clear); Bacteria Urine None Seen /hpf; Bilirubin Urine 1+ (Negative); Blood Urine Negative (Negative); Color Urine Dark Yellow (Yellow); Glucose Urine UA Trace mg/dL (Negative); Ketones Urine 2+ mg/dL (Negative); Leukocyte Esterase Ur Negative LEU/UL (Negative); Mucus Urine Present /lpf; Need Manual Microscopic Reviewed; Nitrate Urine Negative (Negative); Protein Urine 1+ mg/dL (Negative); RBC Urine 0-2 /hpf (0-2); Specific Grav Ur 1.028 (1.001-1.035); Squamous Epithelial Cell Urine Occasional /hpf (Few); WBC Urine 0-5 /hpf (0-3)
[2023-11-28 15:23] LABS: Add Urine Microscopic? YES
[2023-11-28 15:58] VITALS: BP 151/97; PULSE 86; RESP 16; O2SAT 98
[2023-11-28 16:02] LABS: Glucose Point of Care 140 mg/dl (65-105)
[2023-11-28 16:17] LABS: Lactic Acid Reflex 1.1 mmol/L (0.7-2.0)
[2023-11-28 16:18] LABS: Anion Gap 16 mmol/L (4-12); Blood Urea Nitrogen 24 mg/dL (9-20); Calcium 8.3 mg/dL (8.4-10.2); Carbon Dioxide 19 mmol/L (22-30); Chloride 98 mmol/L (98-107); Estimated CRCL calculation 94 ml/min; Estimated Glomerular Filt Rate > 60; Glucose 130 mg/dL (65-110); Potassium 3.5 mmol/L (3.4-5.0); Sodium 133 mmol/L (137-145)
--- NOTE | 2023-11-28 16:52 | PC.NURSE ---
Pt resting with reg resp. Pain & nausea improved
[2023-11-28 16:53] VITALS: BP 159/88; PULSE 75; RESP 16; O2SAT 96
[2023-11-28 17:24] VITALS: BP 168/90; PULSE 72; RESP 18; O2SAT 99
--- NOTE | 2023-11-28 17:30 | ED.ABDPAIN ---
HPI - Abdominal Pain General Chief Complaint: Abdominal Pain Stated Complaint: abd pain Time Seen by Provider: 11/28/23 14:26 History of Present Illness HPI narrative: This is a 73-year-old male with a past medical history significant for diverticulosis with previous diverticulitis episodes. Today patient presents to the ED for evaluation of left lower quadrant pain that he states was sudden in onset 2 days prior. He states he had some associated nausea without vomiting. Loose watery stools consistent with diarrhea without any discoloration, bleeding or dark tarry stools. Patient states his symptoms resolve the last time he had diverticulitis. Denies any chest pain, shortness breast, headache, vision change, fever, chills. No urinary complaints. He was otherwise in his normal state of health. Related Data Home Medications Medication Instructions Recorded Confirmed simvastatin 20 mg tablet 20 mg PO DAILY 06/14/23 06/14/23 Allergies Allergy/AdvReac Type Severity Reaction Status Date / Time mesalamine Allergy Unknown Hives Verified 11/28/23 12:15 aspirin AdvReac Mild ITCHING Verified 11/28/23 12:15 AND LITTLE BUMPS ON TOP OF HEAD Review of Systems Review of Systems: As reviewed above in HPI PMFSH Past Medical History Medical History Diabetes mellitus High cholesterol Hyperlipidemia Hypertension Surgical History Surgical History History of arthroplasty of left knee History of laparoscopic appendectomy History of removal of neck cyst 2020 History of vocal cord polypectomy 2004 Hx of squamous cell carcinoma excision 2007 Neck mass Family History Family History Mother , age 76 Family history of aortic aneurysm Carcinoma of colon Father , age 82 Acute myocardial infarction Hypertension Lung cancer Sibling , 2002 - liver failure No problems noted. Other Family history of cardiovascular disease Family history of malignant neoplasm Social History Social History Smoking status: Never smoker Second hand tobacco smoke exposure: Yes Alcohol intake: current Drinks per week: 2 Alcohol use details: social Substance use: never Substance use type: does not use Lack of Transportation: No Lack of Food: Never True Current Housing: I Have Housing Concerned About Future Housing: No Difficulty Paying Gas/Electric Bills: No Difficulty Paying for Meds: No Currently Unemployed: No Education: Trade/Vocational Certificate Difficulty w/ Childcare or Family Care: No Living arrangements: with family Occupation/Education: retired Spiritual care concerns: No Exam Narrative: GENERAL: [Well-appearing, well-nourished, and in no acute distress.] HEAD: [Normocephalic, atraumatic.] EYES: [PERRLA and EOMI.] ENT: Nares clear, no rhinorrhea or epistaxis. Mucous membranes moist. NECK: Supple. CHEST: [Clear to auscultation. No respiratory distress.] HEART: [Regular rate and rhythm]. No murmur heard. [Normal peripheral pulses.] ABDOMEN: [Soft, nondistended], minimal tenderness in the left lower quadrant without rebound, [No rigidity or guarding] no CVA tenderness no testicular pain or swelling EXTREMITIES: Normal range of motion. [No edema.] SKIN: Warm, dry, no rash. NEURO: [No focal deficits]. Alert and oriented [x3.] PSYCH: [Normal mood and affect.] Course Vital Signs Vital signs: Vital Signs Temperature 36.4 C 11/28/23 12:15 Pulse Rate 106 H 11/28/23 12:15 Respiratory Rate 16 11/28/23 12:15 Blood Pressure 149/99 H 11/28/23 12:15 Pulse Oximetry 97 11/28/23 12:15 Oxygen Delivery Room Air 11/28/23 12:15 Temperature 36.4 C 11/28/23 1
[2023-11-28 17:57] VITALS: BP 160/94; PULSE 79; RESP 18; TEMP 36.6; O2SAT 99
== END 2023-11-28 18:00 | disposition home or self-care (01) ==
PROVIDERS: Emergency Medicine; Emergency Provider Student in an Organized Health Care Education/Training Program; PCP Family Medicine
DX: K52.9 Noninfective gastroenteritis and colitis, unspecified (principal); E11.9 Type 2 diabetes mellitus without complications; E78.00 Pure hypercholesterolemia, unspecified; I10 Essential (primary) hypertension; Z96.652 Presence of left artificial knee joint; Z77.22 Contact with and (suspected) exposure to environmental tobacco smoke (acute) (chronic); Z79.84 Long term (current) use of oral hypoglycemic drugs; Z79.899 Other long term (current) drug therapy
CPT/HCPCS: 36415; 74177; 80048; 80053; 81001; 82948; 83605; 83690; 85025; 96361; 96374; 96375; 99284; J1170; J2405; J7120; Q9967

== ENCOUNTER 2024-10-02 00:20 | Day surgery (SDC) | payer OTHER, SELFPAY ==
[2024-09-26 14:28] VITALS: BMI 32.2
--- OUTSIDE RECORDS SUMMARY | 2024-10-02 00:22 | XMS_ITS ---
Author Organization [facility] [employer] [place] ([address]) Address [address] [place] [address] Care Team Providers Care Trailer Park Manager Name Role Phone Luis Amaya Primary Care Provider Dr. Jules Aranda Unavailable [phone] ZZ-Migration, Provider Unavailable Unavailab le Allergies Allergen (clinical drug ingredient) Drug/Non Drug Allergy documented on EMR Reaction Allergy Type Onset Date Status aspirin Aspirin hives Drug Allergy Active REASON FOR VISIT Multum To Medispan Conversion Encounter Medications Medication SIG (Take, Route, Frequency, Duration) Notes Start Date End Date Status Meloxicam 15 MG 1 tab(s) orally once a day Active Advil 200 MG 1 tab(s) orally ever y 6 hours Active metFORMIN HCl 500 MG 1 tab(s) orally 2 times a day Active Robaxin 100 MG/ML DIRECTED INTRAVENOUSLY EVERY 8 HOURS *Please review and pick correct strength-formulatio n from Medispan options. If intended option is not shown, discontinue and re-order from Quick Search* Active Encounters Encounter Location Date Provider Diagnosis [facility] [place] [address] 10/14/2023 Provider ZZ-Migration Plan Of Treatment No Information Progress Notes * Obie JENNINGS EDOB:1950 (73 yo M)Acc No.[id number]:10/14/2023 Patient: Obie JOYCE Provider: Gabi conner Migration :1950 A ge:72 Y S ex:Male Date:10/14/2023 Address:[address] [place], [place] [id number] Pcp:Luis Amaya Subjective: * Chief Complaints: * 1 . Multum To Medispan Conversion Encounter. * Medical History: * Medications: T aking Advil 200 MG Tablet 1 tab(s) orally every 6 hours , Taking Meloxicam 15 MG Tablet 1 tab(s) orally once a day , Taking Robaxin 100 MG/ML SOLUTION DIRECTED INTRAVENOUSLY EVERY 8 HOURS , Notes to Pharmacist: *Please review and pick correct [facility]ulation [facility]. If intended option is not shown, discontinue and re-order from Quick Search*, Taking metFORMIN HCl 500 MG Tablet 1 tab(s) orally 2 times a day * Allergies: A spirin: hives. Objective: * Vitals: Assessment: Plan: * Treatment: * Billing Information: * Visit Code: * Procedure Codes: * Electronic signature of Erick COYLE-Migration on 10/02/2024 at 12:22 AM CDT Sign off status: Pending * Provider: Gabi conner Migration Date: 10/14/2023 Generated for Kings ferrari/Haider/Gurpreetitting on: 10/02/2024 12:22 AM CDT
--- OUTSIDE RECORDS SUMMARY | 2024-10-02 00:23 | XMS_ITS | Clinical Summary ---
Author Organization [facility] Address [address] [place] [address] Care Team Providers Care Assembler Leather Goods Name Role Phone Ben Young MD Unavailable [phone] Andrea Cervantes MD Unavailable [phone] Harry Melendez MD Primary Care Provider [phone] Allergies Active Allergy Reactions Criticality Noted Date Comments Aspirin Hives Medium 07/30/2020 Medications meloxicam (MOBIC) 15 mg tablet 05/29/2020 Active metFORMIN (GLUCOPHAGE) 500 mg tablet Take 500 mg by mouth 2 (two) times a day 04/30/2020 Active gabapentin (NEURONTIN) 100 mg capsule Take 1 capsule (100 mg total) by mouth nightly as needed 08/09/2022 Active Contour Next Test Strips strip 08/19/2022 Active Contour Next Glucose Meter kit USE TO CHECK BLOOD SUGAR ONCE DAILY 06/29/2022 Active Microlet Lancet misc USE 1 LANCET TO CHECK GLUCOSE ONCE DAILY 06/28/2022 Active ibuprofen 200 mg tab/cap Take by mouth every 6 (six) hours as needed for pain Active Active Problems No known active problems Immunizations Immunization Administration Dates Next Due Influenza, Quadrivalent, Hig h Dose, Preservative Free, Intrr 02/12/2020 Influenza, Trivalent, Adjuvanted, Intramuscular 05/09/2018 Pfizer SARS-CoV-2 Monovalent Vaccination (12+ Yrs) PURPLE 06/30/2020,06/08/2020 Surgical History Surgery Date Site/Laterality Comments COLON SURGERY 05/01/2012 - 04/30/2013 LIPOMA RESECTION 05/01/2019 - 04/30/2020 RIGHT NECK LIPOMA Medical History Medical History Date Comments Diabetes mellitus, type II (HCC) Perforated sigmoid colon (HCC) 10/2012 Vocal cord nodule 2003 Benign GERD (gastroesophageal reflux disease) Family History Medical History Relation Name Comments Lung cancer Father Colon cancer Mother Relation Name Status Comments Father Mother Social History Tobacco Use Types Packs/Day Years Used Date Smoking Tobacco: Never Smokeless Tobacco: Never AUDIT-C Answer Date Recorded Q1: How often do you have a drink containing alc ohol? Monthly or less 08/03/2020 Q2: How many drinks containi ng alcohol do you have on a typical day when you are drinking? 1 or 2 08/03/2020 Q3: How often do you have si x or more drinks on one occasion? Less than monthly 08/03/2020 Personal Safety Answer Date Recorded Getting School Help Needed Not on file 07/01 Sex and Gender Information Value Date Recorded Sex Assigned at Not on file Legal Sex Male 1:55 PM CDT Gender Identity Not on file Sexual Orientation Not on file Obstetrics History Last Filed Vital Signs Vital Sign Reading Time Taken Comments Blood Pressure 163/108 08/03/2020 11:20 AM CDT Pulse 82 08/03/2020 11:20 AM CDT Temperature - - Respiratory Rate - - Oxygen Saturation - - Inhaled Oxygen Concentration - - Weight 109.8 kg (242 lb) 08/31/2020 11:05 AM CDT Height 177.8 cm (5' 10) 08/27/2020 3:20 PM CDT Body Mass Index 34.72 08/27/2020 3:20 PM CDT Plan of Treatment Health Maintenance Due Date Last Done Comments Colon Cancer Screening-Colonoscopy 1950 Depression Screening 1950 Fall Risk Assessment 1950 Hepatitis C Screening 1950 DTaP/Tdap/Td Vaccine (1 - Tdap) 1961 Hepatitis B Screening 1968 Pneumococcal vaccine 65+ (1 of 1 - PCV) 2000 Zoster Vaccine (1 of 2) 2000 Abdominal Aortic Aneurysm (AAA) Screen 11/12/2015 Well Visit 65+ 11/12/2015 Covid-19 Vaccine ( season) 12/31/202306/2020, 06/08/2020 Influenza Vaccine (Season Ended) 2024 02/12/20, 05/09/2018 Insurance [facility] Care Teams Assembler Leather Goods Relationship Specialty Start Date End Date Harry Melendez MD [address] [phone] PCP - General Internal Medicine 07/06/22 Ben Young MD [address] [address] Surgeon General Surgery 08/03/20 Andrea Cervantes MD [address] [facility] [address] [place] [address] Consulting Physician Otolaryngology 09/03/21
--- OUTSIDE RECORDS SUMMARY | 2024-10-02 00:23 | XMS_ITS | Encounter Summary ---
Author Organization [facility] Address [address] [place] [address] Care Team Providers Care Ticketing Agent Name Role Phone Johnson Stout DO Primary Care Provider [phone] Encounter Details Date Type Department Care Team (Late st Contact Info) Description 12/26/2018 Lab Requisition [facility] [address] [place] [address] Satya Waggoner MD [address] [place], [place] [id number] Social History Tobacco Use Types Packs/Day Years Used Date Smoking Tobacco: Never Assessed Sex and Gender Information Value Date Recorded Sex Assigned at Not on file Legal Sex Male 12:32 PM CDT Gender Identity Not on file Sexual Orientation Not on file documented as of this encounter Plan of Treatment Not on file documented as of this encounter Procedures Procedure Name Priority Date/Time Associated Diagnosis Comments DERMATOPATHOLOGY Routine 12/25/2018 12:0 0 AM CDT documented in this encounter Results * DERMATOPATHOLOGY (12/25/2018 12:00 AM CDT) Case Report Dermatopathology Report Case: [id number] Authorizing Provider: Satya Waggoner MD Collected: 12/25/2018 12:00 AM Ordering Location: [facility] Received: 12/26/2018 12:38 PM Pathologist: Kelly Vance MD Specimen: Skin, epigastrium 9 4:46 PM CDT DERMATOPATHOLOGY LABORATORY Final Diagnosis Specimen A. SKIN, epigastrium: LENTIGINOUS MELANOCYTIC NEVUS, COMPOUND TYPE, IRRITATED (COMPOUND MELANOCYTIC NEVUS WITH ARCHITECTURAL DISORDER) (D22.5) NOT PRESENT AT SAMPLED MARGIN 4:46 PM CDT DERMATOPATHOLOGY LABORATORY at 1646 CDT Clinical History R/O dys nevus. Check margins. 4:46 PM CDT DERMATOPATHOLOGY LABORATORY Gross Description Specimen A: Received is one formalin filled container labeled with the patients name and designated epigastrium. The specimen consists of a shave removal measuring [id number]. The margin is inked green. Jar 0. 4:46 PM CDT DERMATOPATHOLOGY LABORATORY Microscopic Description Specimen A. SKIN, epigastrium: This is a compound nevus. There is melanin pigment in the stratum corneum. There is architectural disorder characterized by a lentiginous proliferation of melanocytes between irregular nevus nests of cells along the dermal epidermal junction. There is underlying fibroplasia of the papillary dermis. The intradermal component is bland in appearance and matures with depth. (Compound Mane's Nevus or Compound Dysplastic Nevus) This lesion is not present at the sampled margin of the specimen. 4:46 PM CDT DERMATOPATHOLOGY LABORATORY Disclaimer An external and internal positive and negative controls are appropriate for the histochemical, immunohistochemical and immunofluorescence stain(s) in this case (if any), except where stated explicitly. The performance characteristics of the stain(s) cited in this report were developed and its performance characteristic determined by the Dermatopathology Laboratory at [facility], directed by Dr. Juan Jose Vance. These tests need not be, and therefore are not, approved by the [place] Food and Drug Administration. The tests are used for clinical purposes. Billing Codes Specimen Charges Stain Charges 58067 1 9 4:46 PM CDT DERMATOPATHOLOGY LABORATORY Embedded Images 4:46 PM CDT DERMATOPATHOLOGY LABORATORY Pathology/Cytolog y TISSUE SPECIMEN FROM SKIN / Unknown 12/25/2018 12/26/2018 12:38 PM CDT Satya Waggoner MD LAB - PATHOLOGY/CYTOLOGY ORD ERABLES Final Result DERMATOPATHOLOGY LABORATORY [facility] - Department of Dermatology [address] [facility], 5th Floor Lab [address] [phone] documented in this encounter Visit Diagnoses Not on filedocumented in this encounter Care Teams Ticketing Agent Relationship Specialty Start Date End Date Johnson Stout DO [address] [place] [address] PCP - General 05/27/21 documented as of this encounter
--- OUTSIDE RECORDS SUMMARY | 2024-10-02 00:23 | XMS_ITS | Referral Summary ---
Author Organization [facility] Address [address] [place] [address] Care Team Providers Care Flight Engineer Instructor Name Role Phone Ben Young MD Unavailable [phone] Andrea Cervantes MD Unavailable [phone] Harry Melendez MD Primary Care Provider [phone] Allergies Active Allergy Reactions Criticality Noted Date [...] SARS-CoV-2 Monovalent Vaccination (12+ Yrs) PURPLE 06/30/2020,06/08/2020 Social History Tobacco Use Types Packs/Day Years [...] on file Sexual Orientation Not on file Last Filed Vital Signs Vital Sign Reading [...] 08/27/2020 3:20 PM CDT Plan of Treatment Not on file Insurance [employer] Care Teams Flight Engineer Instructor Relationship Specialty Start Date End Date Harry Melendez MD [address] [address] PCP - General Internal Medicine 07/06/22 Ben Young MD [address] [address] Surgeon General Surgery 08/03/20 Andrea Cervantes MD [address] [address] Consulting Physician Otolaryngology 09/03/21
--- OUTSIDE RECORDS SUMMARY | 2024-10-02 00:23 | XMS_ITS | Clinical Summary ---
Author Organization [facility] Address [address] [address] Care Team Providers Care Admissions Director Name Role Phone Johnson Stout DO Primary Care Provider [phone] Source Comments [facility],non-owned Affiliates and Associated Physician Practices is amultiple site organization consisting of ambulatory clinics and hospital sitesin [place], [place], [place] and [place]. This disclosure is being madepursuant to the Care Everywhere program and may not contain all information available regarding this patient. Last updated 18.[facility] Social History Tobacco Use Types Packs/Day Years Used Date Smoking Tobacco: Never Assessed Sex and Gender Information Value Date Recorded Sex Assigned at Not on file Legal Sex Male 12:32 PM CDT Gender Identity Not on file Sexual Orientation Not on file Plan of Treatment Health Maintenance Due Date Last Done Comments COLOGUARD (AGES 45-75) - COL ON CA SCREENING 1950 COLON MONITORING 1950 COLONOSCOPY - COLON CA SCREENING 1950 CT COLONOGRAPHY - COLON CA SCREENING 1950 Colorectal Cancer Screening 1950 FIT - COLON CA SCREENING 1950 FLEX SIG - COLON CA SCREENING 1950 LIPID TESTING 1950 HEPATITIS C SCREENING 11/06/1968 DTAP/TDAP/TD VACCINES (1 - Tdap) 1969 PNEUMOCOCCAL VACCINE 50+ (1 of 1 - PCV) 2000 ZOSTER VACCINE (1 of 2) 2000 COVID-19 VACCINE ( - 2023-2 5 season) 2023 DEPRESSION SCREENING 05/01/2024 INFLUENZA VACCINE (Season Ended) 2024 Respiratory Syncytial Virus (RSV) Vaccine Pt: or over 60 yrs (1 - 1-dose 75+ series) 2025 HEPATITIS B VACCINE Aged Out No longe r eligible based on patient's age to complete this topic HIB VACCINE Aged Out No longer eligi ble based on patient's age to complete this topic HPV VACCINE Aged Out No longer eligi ble based on patient's age to complete this topic MENINGOCOCCAL (Group B) VACC INE SHARED DECISION-MAKING Aged Out No longer eligibl e based on patient's age to complete this topic MENINGOCOCCAL GROUPS A/C/Y/W VACCINE Aged Out No longer eligible b ased on patient's age to complete this topic Insurance [employer] Care Teams Admissions Director Relationship Specialty Start Date End Date Johnson Stout DO [address] [place] [address] PCP - General 05/27/21
--- OUTSIDE RECORDS SUMMARY | 2024-10-02 00:23 | XMS_ITS | Patient Health Record ---
Author Organization [facility] ([address]) Address [address] [place] [address] Care Team Providers Care Tire Mold Tester Name Role Phone Luis Amaya Primary Care Provider Dr. 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) Referral Organization [facility] Referring Provider First Name Jules Referring Provider Last Name Sergei Referring Provider Speciality Neurology Referred Provider Joo Napier Referral Priority Routine Referring Provider First Name Joo Referring Provider Last Name Quyen Referred Organization [facility] Referred Provider Jules Mai Referred Address [address] [place] [phone], Referral Priority Routine Medications Medication SIG (Take, Route, Frequency, Duration) Notes Start Date End Date Status Meloxicam 15 MG 1 tab(s) orally once a day Active Advil 200 MG 1 tab(s) orally ever y 6 hours Active MELOXICAM 15 mg 1 tab(s) orally once a day As needed Active metFORMIN HCl 500 MG 1 tab(s) orally 2 times a day Active Robaxin 100 MG/ML DIRECTED INTRAVENOUSLY EVERY 8 HOURS *Please review and pick correct strength-formulatio n from Medispan options. If intended option is not shown, discontinue and re-order from Quick Search* Active ADVIL 200 mg 1 tab(s) orally every 6 hours As needed Active ROBAXIN 100 mg/mL as directed intravenously every 8 hours As needed Active METFORMIN 500 mg 1 tab(s) orally 2 times a day Active Social History Tobacco Use: Social History Observation Description Date Details (start date - stop date) Never Smoker NA - NA Smoking Smart Form: Question Answer Notes Are you a: never smoker Additional Findings:Tobacco Non-User Never used moist powdered tobacco Problems Problem Type SNOMED Code ICD Code Onset Dates Problem Status W/U Status Risk Notes Problem Chronic migraine without aura, non-refractory (disorder) (225149009466938) Migraine without aura, not intractable, without status migrainosus (G43.009) Active confirmed Problem Spondylosis without myelopathy (35540343) Spondylosis without myelopathy or radiculopathy, 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) Active confirmed Problem Degeneration of cervical intervertebral disc (49339026) Other cervical disc degeneration, unspecified cervical region (M50.30) Active confirmed Problem Cervicalgia (15255154) Cervicalgia (M54.2) Active confirmed Problem Cervicogenic headache (520460184) Cervicogenic headache (G44.86) Active confirmed Encounters Encounter Location Date Provider Diagnosis [address] [address] 10/14/2023 Provider [facility] [address] [place] [address] 10/11/2023 Jules Mai Cervicalgia M54.2 ; Other cervical disc degeneration, unspecified cervical region M50.30 and Spondylosis without myelopathy or radiculopathy, site unspecified M47.[address] [address] 10/18/2023 Jules Mai Assessments Encounter Date Diagnosis (ICD Code) Assessment Notes Treatment Notes Treatment Clinical Notes Section Notes 10/11/2023 Cervicalgia (ICD-10 - M54.2) 10/11/2023 Other cervical disc degeneration, unspecified cervical region (ICD-10 - M50.30) 10/11/2023 Spondylosis without myelopathy or radiculopathy, site unspecified (ICD-10 - M47.819) Plan Of Treatment No Information Insurance Providers Payer Name Payer Address Payer Phone Subscriber Number Group Number Insured Name Patient Relationship to Insured Coverage Start Date Coverage End Date [employer] [address] [address] [place] [address] [id number] Obie Jennings Self - patient is the insured 4
[2024-10-02 11:28] VITALS: BP 161/95; PULSE 65; RESP 14; TEMP 36.4; O2SAT 99
[2024-10-02] MEDS: LACTATED RINGERS 1,000 ML 150 ML IV CONT (11:45)
--- NOTE | 2024-10-02 11:46 | SUR.PREOP ---
Notified Nanci Dorsey CRNA of patient's preop blood pressure.
--- NOTE | 2024-10-02 11:50 | WPDANESEPPF ---
Anes - Initial Pre Proc Eval Procedure: Operation Date: 10/02/24 08:00 Proposed Procedures p Colonoscopy - Marc Eason MD Date/Time: 10/02/24 11:50 Surgeon: Marc Eason MD Pre Op Diagnosis: fam hx malignant neoplasm Patient Data Age: 73 Gender: M Height: 1.78 m Weight: 100.6 kg Last Vital Signs Temp 36.4 C 10/02/24 11:28 Pulse 65 10/02/24 11:28 Resp 14 10/02/24 11:28 BP 161/95 H 10/02/24 11:28 Pulse Ox 99 10/02/24 11:28 O2 Del Method Room Air 10/02/24 11:28 Allergies Allergy/AdvReac Type Severity Reaction Status Date / Time mesalamine Allergy Unknown Hives Verified 10/02/24 11:26 aspirin AdvReac Mild ITCHING Verified 10/02/24 11:26 AND LITTLE BUMPS ON TOP OF HEAD Home Medications ?Medication ?Instructions ?Recorded ?Confirmed ?Type blood-glucose meter #1 ea 06/28/22 06/14/23 Rx lancets 33 gauge (Micro Thin #100 ea 06/28/22 06/14/23 Rx Lancets) blood sugar diagnostic (Contour #70 ea 08/19/22 06/14/23 Rx Next Test Strips) metformin 1,000 mg tablet 1,000 mg PO BID #180 tabs 08/31/22 10/02/24 Rx simvastatin 20 mg tablet 20 mg PO DAILY 06/14/23 10/02/24 History acetaminophen 500 mg tablet 1,000 mg (2 x 500 mg) PO Q6H PRN 11/28/23 09/26/24 Rx (Tylenol Extra Strength) pain #30 tabs dicyclomine 20 mg tablet 20 mg PO TID PRN abdominal pain 11/28/23 09/26/24 Rx #14 tabs methocarbamol 750 mg tablet 750 mg PO TID PRN muscle spasm #90 09/19/24 09/26/24 Rx tabs famotidine 20 mg tablet (Pepcid) 20 mg PO BID PRN REFLUX 09/26/24 10/02/24 History Patient hx anesthesia problems: none Family hx anesthesia problems: none Results Review: All pre-operative results and documents have been reviewed as part of the pre-operative evaluation. PMFSH Past Medical History Medical History BMI 27.0-27.9,adult Hyperlipidemia Diabetes mellitus Hypertension High cholesterol Surgical History Surgical History History of removal of neck cyst 2019 History of vocal cord polypectomy 2004 Hx of squamous cell carcinoma excision 2007 Neck mass History of arthroplasty of left knee History of laparoscopic appendectomy Family History Family History Mother , age 76 Family history of aortic aneurysm Carcinoma of colon Father , age 82 Acute myocardial infarction Hypertension Lung cancer Sibling , 2002 - liver failure No problems noted. Other Family history of cardiovascular disease Family history of malignant neoplasm Social History Social History Smoking status: Never smoker Second hand tobacco smoke exposure: Yes Alcohol intake: current Drinks per week: 2 Alcohol use details: social Substance use: never Substance use type: does not use Do You Feel Safe in your Home?: Yes Lack of Transportation: No Lack of Food: Never True Current Housing: I Have Housing Concerned About Future Housing: No Difficulty Paying Gas/Electric Bills: No Difficulty Paying for Meds: No Currently Unemployed: No Education: Trade/Vocational Certificate Difficulty w/ Childcare or Family Care: No Living arrangements: with family Occupation/Education: 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 Gender identity (if verbalized by the patient): Male Spiritual care concerns: No Anes - Eval Final PreProcedure Day of Procedure 10/02/24 11:50 Patient weight: obese Heart: regular rate and rhythm Lungs: clear to auscultation Airway: Mallampati scale class II Neurological: alert and oriented Last oral intake: >/= 8 hours ASA classification: III Emergent: no Anesthetic plan: proceed Anesthesia type and monitoring: general GIVS and standard monitoring Results Review: All pre-operative results and documents have been reviewed as part of the pre-operative evaluation. Informed Consent: The patient's anesthetic plan and its attendant risks and benefits were discussed with the patient/family/POA. Questions were solicited and answers provided to the satisfaction of the patient/family/POA.
[2024-10-02 11:51] LABS: Glucose Point of Care 105 mg/dl (65-105)
--- NOTE | 2024-10-02 12:46 | P.HP_ITS ---
H&P: HPI History of Present Illness Date/Time: 10/02/24 12:46 Chief Complaint: History of colon polyps Narrative: The patient has a history of colonic polyps, the last colonoscopy was approximately 5 years ago This patient has family history of colorectal cancer. His mother had colorectal cancer at 60. Review of Systems Review of Systems: All systems reviewed & are unremarkable except as noted in HPI and below PMFSH Past Medical History Medical History BMI 27.0-27.9,adult Hyperlipidemia Diabetes mellitus Hypertension High cholesterol Surgical History Surgical History History of removal of neck cyst 2019 History of vocal cord polypectomy 2003 Hx of squamous cell carcinoma excision 2007 Neck mass History of arthroplasty of left knee History of laparoscopic appendectomy Family History Family History Mother , age 76 Family history of aortic aneurysm Carcinoma of colon Father , age 82 Acute myocardial infarction Hypertension Lung cancer Sibling , 2002 - liver failure No problems noted. Other Family history of cardiovascular disease Family history of malignant neoplasm Social History Social History Smoking status: Never smoker Second hand tobacco smoke exposure: Yes Alcohol intake: current Drinks per week: 2 Alcohol use details: social Substance use: never Substance use type: does not use Do You Feel Safe in your Home?: Yes Lack of Transportation: No Lack of Food: Never True Current Housing: I Have Housing Concerned About Future Housing: No Difficulty Paying Gas/Electric Bills: No Difficulty Paying for Meds: No Currently Unemployed: No Education: Trade/Vocational Certificate Difficulty w/ Childcare or Family Care: No Living arrangements: with family Occupation/Education: 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 Gender identity (if verbalized by the patient): Male Spiritual care concerns: No Meds Home Medications and Allergies Home Medications ?Medication ?Instructions ?Recorded ?Confirmed ?Type blood-glucose meter #1 ea 06/28/22 06/14/23 Rx lancets 33 gauge (Micro Thin #100 ea 06/28/22 06/14/23 Rx Lancets) blood sugar diagnostic (Contour #70 ea 04/21/23 02/14/24 Rx Next Test Strips) metformin 1,000 mg tablet 1,000 mg PO BID #180 tabs 08/31/22 10/02/24 Rx simvastatin 20 mg tablet 20 mg PO DAILY 06/14/23 10/02/24 History acetaminophen 500 mg tablet 1,000 mg (2 x 500 mg) PO Q6H PRN 11/28/23 09/26/24 Rx (Tylenol Extra Strength) pain #30 tabs dicyclomine 20 mg tablet 20 mg PO TID PRN abdominal pain 11/28/23 09/26/24 Rx #14 tabs methocarbamol 750 mg tablet 750 mg PO TID PRN muscle spasm #90 09/19/24 09/26/24 Rx tabs famotidine 20 mg tablet (Pepcid) 20 mg PO BID PRN REFLUX 09/26/24 10/02/24 History Allergies Allergy/AdvReac Type Severity Reaction Status Date / Time mesalamine Allergy Unknown Hives Verified 10/02/24 11:26 aspirin AdvReac Mild ITCHING Verified 10/02/24 11:26 AND LITTLE BUMPS ON TOP OF HEAD Vital Signs Vital Signs - 24 hr 10/02/24 11:28 Temperature 97.6 F Pulse Rate 65 Respiratory Rate 14 Blood Pressure 161/95 H Pulse Oximetry 99 Oxygen Delivery Room Air Exam Const: General: cooperative and healthy appearing Resp: Effort & Inspection: normal respiratory effort and able to speak in complete sentences Auscultation: clear to auscultation bilaterally Cardio: Rate: regular rate Rhythm: regular rhythm GI: Inspection: normal to inspection GI Palp: No No hepatosplenomegaly present Auscultation: normal bowel sounds Rectal Exam: deferred Skin: General skin exam: normal color Psych: Appearance: grossly normal Mental Status: mental status grossly normal Assessment and Plan Assessment and plan (1) Family history of colon cancer in mother: Code(s): Z80.0 - Family history of malignant neoplasm of digestive organs Status: Acute Assessment and Plan: The patient is deemed a good candidate for the procedure. Consent signed. Will proceed.
[2024-10-02 13:11] VITALS: BP 113/78; PULSE 64; RESP 21; O2SAT 99
[2024-10-02 13:21] VITALS: BP 131/69; PULSE 75; RESP 17; O2SAT 98
[2024-10-02 13:31] VITALS: BP 130/69; PULSE 67; RESP 16; O2SAT 99
== END 2024-10-02 13:43 | disposition home or self-care (01) ==
PROVIDERS: PCP Internal Medicine; Referring Provider Internal Medicine Gastroenterology; Visit Provider Internal Medicine Gastroenterology
PROC: 0DJD8ZZ Inspection of Lower Intestinal Tract, Via Natural or Artificial Opening Endoscopic (ICD-10-PCS; CPT 45378; principal; 2024-10-02 08:00)
DX: Z12.11 Encounter for screening for malignant neoplasm of colon (principal); K64.8 Other hemorrhoids; K57.30 Diverticulosis of large intestine without perforation or abscess without bleeding; E11.9 Type 2 diabetes mellitus without complications; I10 Essential (primary) hypertension; E78.00 Pure hypercholesterolemia, unspecified; E66.9 Obesity, unspecified; Z68.31 Body mass index [BMI] 31.0-31.9, adult; Z79.84 Long term (current) use of oral hypoglycemic drugs; Z98.890 Other specified postprocedural states; Z86.0100 Personal history of colon polyps, unspecified; Z85.828 Personal history of other malignant neoplasm of skin; Z80.0 Family history of malignant neoplasm of digestive organs; Z80.1 Family history of malignant neoplasm of trachea, bronchus and lung; Z82.49 Family history of ischemic heart disease and other diseases of the circulatory system
CPT/HCPCS: G0105; 82948; J2003; J2704; J7120